=== PATIENT | male | born 1940 | race Caucasian/White ===

== ENCOUNTER 2017-05-10 14:11 | Emergency (ER) | payer OTHER ==
[2017-05-10 15:00] LABS: ALT (SGPT) 10 U/L (8-55); AST (SGOT) 20 U/L (5-34); Albumin 3.9 g/dL (3.4-4.8); Alkaline Phosphatase 68 U/L (40-150); Anion Gap 14 mmol/L (10-20); BUN (Urea Nitrogen) 12 mg/dL (8.4-25.7); Bilirubin, Total 0.4 mg/dL (0.2-1.2); CK (CPK) 102 U/L (30-200); Calc. Creatinine Clearance 0 mL/min (70-130); Calcium 8.8 mg/dL (7.8-10.44); Carbon Dioxide 20 mmol/L (23-31); Chloride 100 mmol/L (98-107); Estimated GFR-MDRD 59; Globulin 3.6 g/dL (2.4-3.5); Glucose 83 mg/dL (83-110); Lipase 27 U/L (8-78); Protein, Total 7.5 g/dL (5.8-8.1); Sodium 130 mmol/L (136-145)
[2017-05-10 15:06] LABS: CKMB 1.5 ng/mL (0-6.6); Troponin I Less than 0.010 ng/mL (< 0.028)
[2017-05-10 15:09] LABS: #Basophils 0.1 thou/uL (0.0-0.2); #Eosinphils 0.2 thou/uL (0.0-0.7); #Lymphocytes 2.8 thou/uL (1.20-3.40); #Monocytes 0.6 thou/uL (0.11-0.59); %Basophils 0.6 % (0.0-1.0); %Eosinophils 1.6 % (0.0-10.0); %Monocytes 5.3 % (0.0-10.0); %Neutrophils 68.5 % (42.0-75.0); Hemoglobin 16.3 g/dL (14.0-18.0); Mean Corpuscular HGB CONC 33.1 g/dL (32.0-36.0); Mean Corpuscular Hemoglobin 31.4 pg (27.0-31.0); Mean Corpuscular Volume 94.7 fl (80.0-94.0); Platelet Count 139 thou/uL (130-400); RBC Distribution Width 11.9 % (11.5-14.5); White Blood Cell (WBC) Count 11.6 thou/uL (4.8-10.8)
--- NOTE | 2017-05-10 15:30 | RAD ---
CHEST ONE VIEW: HISTORY: Chest pain. COMPARISON: None. FINDINGS: There is right infrahilar air space opacity with extension to the right lateral hemithorax. There is prominence of the right hilum. No pneumothorax. There are dense calcifications projecting just anterolateral to the right first and second ribs. Norma dence of old trauma of the right distal clavicle. There is vascular calcification of the right axill cathy vasculature. IMPRESSION: 1. Right infrahilar opacity with extension into the right lower lobe, concerning for pneumonia. Foll ow up recommended. 2. Cephalization of the pulmonary vasculature suggests pulmonary venous hypertension. 3. Left lower lobe calcified granuloma. 4. There appear to be asymmetric vascular calcifications of the right axilla, extending into the nec k. POS: [facility]
== END 2017-05-10 15:42 | disposition home or self-care (01) ==
LOC: NAV ERS 14:11
DX: I10 Essential (primary) hypertension (principal); F17.210 Nicotine dependence, cigarettes, uncomplicated; Z79.899 Other long term (current) drug therapy
CPT/HCPCS: 36415; 71010; 80053; 82550; 82553; 83690; 83880; 84484; 85025; 93005

== ENCOUNTER 2017-08-26 19:28 | Emergency (ER) | payer OTHER ==
[2017-08-26] MEDS ORDERED: Morphine 4 MG/ML Carpuject ONE (19:46)
[2017-08-26] MEDS ORDERED: Ondansetron HCl/PF 4 MG/2 ML Vial ONE (19:46)
[2017-08-26 20:15] LABS: #Basophils 0.1 thou/uL (0.0-0.2); #Eosinphils 0.2 thou/uL (0.0-0.7); #Monocytes 0.6 thou/uL (0.11-0.59); %Basophils 0.5 % (0.0-1.0); %Eosinophils 1.9 % (0.0-10.0); %Lymphocytes 15.3 % (21.0-51.0); %Monocytes 4.3 % (0.0-10.0); Hemoglobin 14.6 g/dL (14.0-18.0); Mean Corpuscular HGB CONC 34.1 g/dL (32.0-36.0); Mean Corpuscular Hemoglobin 30.6 pg (27.0-31.0); Mean Corpuscular Volume 89.5 fl (80.0-94.0); Mean Platelet Volume 9.6 fL (7.4-10.4); Platelet Count 159 thou/uL (130-400); Red Blood Cell (RBC) Count 4.77 mill/uL (4.70-6.10); White Blood Cell (WBC) Count 12.8 thou/uL (4.8-10.8)
[2017-08-26 20:17] LABS: PTT 30.6 SEC (22.9-36.1); Prothrombin Time 13.3 SEC (12.0-14.7)
[2017-08-26 20:27] LABS: Troponin I Less than 0.010 ng/mL (< 0.028)
[2017-08-26 20:30] LABS: ALT (SGPT) 10 U/L (8-55); AST (SGOT) 20 U/L (5-34); Albumin 3.8 g/dL (3.4-4.8); Alkaline Phosphatase 59 U/L (40-150); Anion Gap 15 mmol/L (10-20); BUN (Urea Nitrogen) 15 mg/dL (8.4-25.7); Bilirubin, Total 0.3 mg/dL (0.2-1.2); CK (CPK) 216 U/L (30-200); Calc. Creatinine Clearance 0 mL/min (70-130); Calcium 8.6 mg/dL (7.8-10.44); Carbon Dioxide 20 mmol/L (23-31); Chloride 98 mmol/L (98-107); Estimated GFR-MDRD 67; Globulin 3.5 g/dL (2.4-3.5); Glucose 89 mg/dL (83-110); Lipase 34 U/L (8-78); Magnesium 2.4 mg/dL (1.6-2.6); Potassium 4.2 mmol/L (3.5-5.1); Protein, Total 7.3 g/dL (5.8-8.1); Sodium 129 mmol/L (136-145)
[2017-08-26 20:36] LABS: Acetaminophen Less than 6.0 mcg/mL (10.0-30.0); Alcohol 154 mg/dL (Less than 10); Salicylate Less than 8.0 mg/dL (15.0-30.0)
--- NOTE | 2017-08-26 20:54 | CT ---
CT HEAD WITHOUT IV CONTRAST 08/26/17 HISTORY: Injury after a fall. COMPARISON: None available. FINDINGS: there are low density areas seen within each basal ganglia including the thalami likely related to re mote lacunar infarctions. There is an area of encephalomalacia and decreased attenuation in the media l right occipital lobe likely related to remote area of infarction. There is decreased attenuation of the periventricular white matter likely reflective of chronic small vessel ischemic changes. There is no evidence of an acute cortical infarction, hemorrhage, mass effe ct or midline shift. There is diffuse cerebral and cerebellar volume loss. The ventricular system is normal in size, shape and position for the degree of sulcal atrophy. Visualized paranasal sinuses and mastoid air cells are clear. The calvarial structures are intact. IMPRESSION: 1. No acute intracranial abnormalities demonstrated. 2. 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 3. Chronic small vessel ischemic changes. 4. Cerebral and cerebellar volume loss. POS: [facility]
[2017-08-26 21:34] LABS: Bilirubin Negative (Negative); Blood, Urine Negative (Negative); Clarity Clear (Clear); Glucose, Urine (Dipstick) Negative (Negative); Leukocyte Trace (Negative); Nitrite Negative (Negative); Protein, Urine (Dipstick) Negative (Neg-Trace); Specific Gravity, Urine 1.015 (1.005-1.030); Urobilinogen 0.2 mg/dL (0.2-1.0)
[2017-08-26 21:38] LABS: Bacteria/HPF Rare-Few HPF (None Seen); RBC/HPF None Seen HPF (0-3); Squamous Epithelial 0-3 HPF (0-3); WBC/HPF 0-3 HPF (0-3)
--- NOTE | 2017-08-26 21:40 | CT ---
NONCONTRAST CT CERVICAL SPINE 08/26/17 HISTORY: Injury after a fall. TECHNIQUE: Contiguous axial CT images are obtained through the cervical spine from the skull base to the T3-4 le guillermo. Sagittal and coronal reformat images are provided. FINDINGS: There is significant motion artifact at the base of the skull on this exam, but no fracture was seen at the base of the skull on the recent CT scan exam also obtained on this date. There is a type II nondisplaced fracture involving the odontoid. This fracture is best seen on the sa gittal reconstructions and is not well appreciated on the coronal images. Multilevel degenerative changes are seen throughout the cervical spine with multilevel facet hypertro phic changes noted. There is slight retrolisthesis of C6 on C7 related to prominent degenerative groves ges. There is narrowing of the intervertebral disc spaces at multiple levels, but greatest at the C5- 6 and C6-7 levels. There is bony encroachment on multiple neural foramina due to the multilevel facet hypertrophic changes with degree of neural foraminal narrowing approaching moderate and severe at mu ltiple levels. There is calcified biapical pleural and parenchymal scarring noted. Vascular calcifications are seen in the carotid arteries. There is also dense vascular calcifications in the subclavian arteries bilaterally. IMPRESSION: 1. Nondisplaced type II odontoid fracture. 2. Prominent multilevel degenerative changes with moderate and severe degrees of bilateral neura l foraminal narrowing at multiple levels due to bony encroachment. 3. Slight retrolisthesis of C6 on C7 related to the degenerative changes. 4. Question of fusion of the posterior elements at the C3-4 and C4-5 levels, with partial fusion of the posterior elements at the C2-3 level. 5. Above findings were discussed with José Miguel in the Emergency Department on 08/26/17 at 2036 dallin rs. POS: [facility]
[2017-08-26 21:41] LABS: Amphetamine Not Detected (NotDetected); Benzodiazepine Screen Not Detected (NotDetected); Cocaine Metabolite Screen Not Detected (NotDetected); Methamphetamine Not Detected (NotDetected); Opiate Screen Detected (NotDetected); Phencyclidine (PCP) Not Detected (NotDetected); THC/Cannabinoid Screen Not Detected (NotDetected); Tricyclic Screen Not Detected (NotDetected)
[2017-08-26 21:42] LABS: Barbiturates Screen Not Detected (NotDetected); Medtox Control Line Valid? VALID (VALID); Methadone Not Detected (NotDetected); Oxycodone Screen Not Detected (NotDetected)
--- NOTE | 2017-08-26 22:03 | RAD ---
TWO VIEWS LEFT HIP 08/26/17 HISTORY: Left hip pain after a fall. FINDINGS: There is a subcapital left femoral neck fracture with varus angulation of the fracture fragments. Dis dany fracture fragment is also displaced superiorly. No additional fracture is seen and there is no di slocation. Dense vascular calcifications are seen in the iliac and femoral arteries. Surgical clips o verlie the scrotum bilaterally. IMPRESSION: Mildly displaced and angulated left subcapital femoral neck fracture. POS: [facility]
--- NOTE | 2017-08-26 22:13 | RAD ---
PORTABLE AP CHEST X-RAY 08/26/17 HISTORY: Left hip pain after a fall, trauma. COMPARISON: 05/10/17. FINDINGS: Layered densities overlie right lateral lung base likely related to overlying skin folds. The lungs a re clear aside from my chronic lung changes. No pneumothorax or pleural effusion is seen on this exam . The left lateral costophrenic angle is excluded from view. Cardiac silhouette and pulmonary vascula ture are within normal limits. Vascular calcifications seen in the thoracic aorta. No obvious fractur e is seen. There is osteopenia. Vascular calcifications are see in the right axillary artery. IMPRESSION: 1. No acute cardiopulmonary process. 2. Mild elevation of the right hemidiaphragm. POS: [facility]
== END 2017-08-26 23:43 | disposition short-term general hospital (02) ==
LOC: NAV ERS 19:28
DX: S72.012A Unspecified intracapsular fracture of left femur, initial encounter for closed fracture (principal); S12.112A Nondisplaced Type II dens fracture, initial encounter for closed fracture; I10 Essential (primary) hypertension; F17.210 Nicotine dependence, cigarettes, uncomplicated; Y92.009 Unspecified place in unspecified non-institutional (private) residence as the place of occurrence of the external cause; W19.XXXA Unspecified fall, initial encounter
CPT/HCPCS: 70450; 71045; 72125; 80053; 80306; 80307; 81003; 81015; 82553; 83605; 83690; 83735; 84484; 85025; 85610; 85730; 93005; 96361; 96374; 96375; G0390; J2270; J2405

== ENCOUNTER 2018-09-10 13:26 | Emergency (ER) | payer MEDICARE ==
--- NOTE | 2018-09-10 14:53 | RAD ---
2 VIEW LEFT HIP: Date: 09/10/18 INDICATION: Left hip pain, related to fall. FINDINGS: There is hardware of the left hip, including prosthesis, with surrounding cerclage wiring. The femora l head component is seated within the rampart acetabulum. There is osseous demineralization. No periha rdware lucency visualized. IMPRESSION: Postoperative left hip without acute hardware complication identified. POS: [facility]
[2018-09-10] MEDS ORDERED: Acetaminophen 325 MG TAB ONE (14:59)
--- NOTE | 2018-09-10 15:02 | RAD ---
AP PELVIS: Date: 09/10/18 HISTORY: Pelvic pain. COMPARISON: 10/13/17. FINDINGS: Left hip prosthesis is unchanged in appearance and position. Right hip unremarkable with mild degener ative change. The bony pelvis appears intact. IMPRESSION: No acute findings or significant interval change apparent. POS: [facility]
[2018-09-10 15:06] LABS: ALT (SGPT) 14 U/L (8-55); AST (SGOT) 19 U/L (5-34); Albumin 3.6 g/dL (3.4-4.8); Alkaline Phosphatase 78 U/L (40-150); Anion Gap 12 mmol/L (10-20); BUN (Urea Nitrogen) 27 mg/dL (8.4-25.7); Bilirubin, Total 0.3 mg/dL (0.2-1.2); Calc. Creatinine Clearance 0 mL/min (70-130); Calcium 9.2 mg/dL (7.8-10.44); Carbon Dioxide 24 mmol/L (23-31); Chloride 108 mmol/L (98-107); Estimated GFR-MDRD 57; Globulin 3.5 g/dL (2.4-3.5); Glucose 103 mg/dL (83-110); Potassium 4.1 mmol/L (3.5-5.1); Protein, Total 7.1 g/dL (5.8-8.1); Sodium 140 mmol/L (136-145)
[2018-09-10 15:08] LABS: #Eosinphils 0.1 thou/uL (0.0-0.7); #Lymphocytes 1.6 thou/uL (1.20-3.40); #Monocytes 0.7 thou/uL (0.11-0.59); #Neutrophils 10.1 thou/uL (1.40-6.50); %Basophils 0.3 % (0.0-1.0); %Eosinophils 0.5 % (0.0-10.0); %Lymphocytes 12.9 % (21.0-51.0); %Monocytes 5.4 % (0.0-10.0); %Neutrophils 80.9 % (42.0-75.0); Hemoglobin 11.5 g/dL (14.0-18.0); Mean Corpuscular HGB CONC 31.4 g/dL (32.0-36.0); Mean Corpuscular Hemoglobin 28.1 pg (27.0-31.0); Mean Corpuscular Volume 89.4 fL (78.0-98.0); Mean Platelet Volume 6.1 fL (7.4-10.4); Platelet Count 301 thou/uL (130-400); RBC Distribution Width 19.1 % (11.5-14.5); Red Blood Cell (RBC) Count 4.08 mill/uL (4.70-6.10); White Blood Cell (WBC) Count 12.4 thou/uL (4.8-10.8)
== END 2018-09-10 16:35 | disposition home or self-care (01) ==
LOC: NAV ERS 13:26
DX: S70.02XA Contusion of left hip, initial encounter (principal); Z86.73 Personal history of transient ischemic attack (TIA), and cerebral infarction without residual deficits; I10 Essential (primary) hypertension; F17.210 Nicotine dependence, cigarettes, uncomplicated; Z79.899 Other long term (current) drug therapy; W19.XXXA Unspecified fall, initial encounter
CPT/HCPCS: 72170; 80053; 85025